=== PATIENT | female | born 1985 | race Caucasian/White ===

== ENCOUNTER 2023-08-11 15:15 | Emergency (ER) | payer SELFPAY ==
[2023-08-11 15:19] VITALS: BP 126/67; PULSE 68; RESP 16; TEMP 36.4; O2SAT 100; BMI 21.1
--- NOTE | 2023-08-11 15:44 | ED.FALL ---
HPI - Fall <Jacinta Ng PA-C - Last Filed: 08/11/23 18:39> General Chief Complaint: Fall Stated Complaint: fell/back injury Time Seen by Provider: 08/11/23 15:27 Source: patient Mode of arrival: Wheelchair History of Present Illness HPI Narrative: 38-year-old female here in ED for a back/rib injury that occurred about 2 hours [employer]. She was standing on a retaining wall and stepped onto a stump to get down in the stump ruled out from under her and she fell backwards striking her mid left back on a large plantar part. She felt pain immediately in the area. States that she took 400 mg ibuprofen before coming here. She states the pain is much worse when trying to take a deep breath. She denies any radiating symptoms to her arms or legs. She has not urinated since this happened so unsure if any hematuria or urinary problems. Related Data Previous Rx's Medication Instructions Recorded cyclobenzaprine 5 mg tablet 5 mg PO TID #20 tabs 08/11/23 Allergies Allergy/AdvReac Type Severity Reaction Status Date / Time No Known Drug Allergies Allergy Verified 08/11/23 15:27 Review of Systems <Jacinta Ng PA-C - Last Filed: 08/11/23 18:39> Review of Systems ROS Unobtainable: All systems reviewed & are unremarkable except as noted in HPI and below Patient History <Jacinat Ng PA-C - Last Filed: 08/11/23 18:39> Social History Smoking Status: Never smoker Smoking Status: Never smoker Substance Use Type: does not use Exam <Jacinta Ng PA-C - Last Filed: 08/11/23 18:39> Narrative Exam Narrative: GENERAL: [38] year old patient appears stated age. Well-developed patient, in mild distress. HEAD: Atraumatic. Normocephalic. EYES: Pupils equal round and reactive. Extraocular motions intact. No scleral icterus. No injection or drainage. ENT: Nose without bleeding, purulent drainage. Throat without erythema, tonsillar hypertrophy or exudate. Airway patent. NECK: Trachea midline. Non tender CARDIOVASCULAR: Regular rate and rhythm without murmurs, gallops, or rubs. RESPIRATORY: Clear to auscultation. Breath sounds equal bilaterally. No wheezes, rales, or rhonchi. GASTROINTESTINAL: Abdomen soft, non-tender, nondistended. EXTREMITIES: No edema or joint tenderness. BACK: small area of ecchymosis and mild swelling to the left of the thoracic spine around T9-T10. Pinpoint tenderness to this area along the ribs. No spinal deformity, tenderness, step-offs. NEURO: AOx3. SKIN: No rash or erythema of visible areas Initial Vital Signs Initial Vital Signs: Vital Signs Temperature 97.5 F L 08/11/23 15:19 Pulse Rate 68 08/11/23 15:19 Respiratory Rate 16 08/11/23 15:19 Blood Pressure 126/67 08/11/23 15:19 Pulse Oximetry 100 08/11/23 15:19 Oxygen Delivery Method Room Air 08/11/23 15:19 <Joel Covarurbias DO - Last Filed: 08/13/23 07:03> Initial Vital Signs Initial Vital Signs: Vital Signs Temperature 97.5 F L 08/11/23 15:19 Pulse Rate 68 08/11/23 15:19 Respiratory Rate 16 08/11/23 15:19 Blood Pressure 126/67 08/11/23 15:19 Pulse Oximetry 100 08/11/23 15:19 Oxygen Delivery Method Room Air 08/11/23 15:19 Course <Jacinta Ng PA-C - Last Filed: 08/11/23 18:39> Orders Ordered: Discontinued Medications Acetaminophen (Acetaminophen 325 Mg Tablet) 975 mg PO NOW ONE Stop: 08/11/23 15:46 Last Admin: 08/11/23 15:52 Dose: 975 mg Documented By: Cyclobenzaprine HCl (Cyclobenzaprine 10 Mg Tablet) 5 mg PO NOW ONE Stop: 08/11/23 15:46 Last Admin: 08/11/23 15:53 Dose: 5 mg Documented By: Vital Signs Vital signs: Vital Signs - 8 hr 08/11/23 15:19 Temperature 97.5 F L Pulse Rate 68 Respiratory Rate 16 Blood Pressure 126/67 Pulse Oximetry 100 Oxygen Delivery Method Room Air <Joel Covarrubias DO - Last Filed: 08/13/23 07:03> Orders Ordered: Discontinued Medications Acetaminophen (Acetaminophen 325 Mg Tablet) 975 mg PO NOW ONE Stop: 08/11/23 15:46 Last Admin: 08/11/23 15:52 Dose: 975 mg Documented By: ST Cyclobenzaprine HCl (Cyclobenzaprine 10 Mg Tablet) 5 mg PO NOW ONE Stop: 08/11/23 15:46 Last Admin: 08/11/23 15:53 Dose: 5 mg Documented By: Vital Signs Vital signs: Vital Signs - 8 hr 08/11/23 15:19 Temperature 97.5 F L Pulse Rate 68 Respiratory Rate 16 Blood Pressure 126/67 Pulse Oximetry 100 Oxygen Delivery Method Room Air MDM - Fall <Jacinta Ng PA-C - Last Filed: 08/11/23 18:39> Imaging Data T-Spine XRay: Radiologist's Impression: [address] [address] XRay Report Signed Patient: Zhane Nelson MR#: [id number] : 1985 Acct:[id number] Age/Sex: 38 / F Date of Service: 08/11/23 Loc: ED Accession Number: [id number] ?? Procedure: XR thoracic spine 3V Ordering Provider: Jacinta Ng P.A-C PROCEDURE:? XR THORACIC SPINE 3V ? INDICATIONS:? back injury ? TECHNIQUE:? 3 views of the thoracic spine were acquired.? ? COMPARISON:? None. ? FINDINGS:? ? Bones:? No fractures or dislocations.? No suspicious bony lesions.? 12 pairs of ribs are noted, and appear intact where visualized.? Mild multilevel degenerative endplate changes with marginal spurring.? Mild levocurvature, may be positional. ? Soft tissues:? No paravertebral stripe thickening.? ? ? IMPRESSION:? No vertebral body compression deformities. ? ? Dictated by: Patrick Forte M.D. on 08/11/2023 at 16:54 ? ? Approved by: Patrick Forte M.D. on 08/11/2023 at 16:55 ? L Rib Xray : Radiologist's Impression: [address] [address] XRay Report Signed Patient: Zhane Nelson MR#: [id number] : 1985 Acct:[id number] Age/Sex: 38 / F Date of Service: 08/11/23 Loc: ED Accession Number: [id number] ?? Procedure: XR ribs LT min 3V w CXR1V Ordering Provider: Jacinta Ng P.A-C PROCEDURE:? XR RIBS LT MIN 3V W CXR1V ? INDICATIONS:? back/rib injury ? TECHNIQUE:? 2 views of the left ribs were acquired, along with a single view chest.? ? COMPARISON:? None. ? FINDINGS:? ? Surgical changes and devices:? None.? ? Bones and chest wall:? Rib fracture versus overlap of structures in the left posterior 10th rib and possibly the left posterior 9th rib.? This is seen only on a single view.? No suspicious bony lesions.? Overlying soft tissues appear unremarkable.? ? Lungs and pleura:? No pleural effusions or pneumothorax.? Lungs appear clear.? ? Mediastinum:? Mediastinal contours appear normal.? Heart size is normal.? ? IMPRESSION:? Possible fracture versus overlap of structures of the left posterior 10th rib and possibly the left posterior 9th rib as well, seen only on a single view.? Recommend correlation with point tenderness. No pneumothorax is seen.? ? Dictated by: Patrick Forte M.D. on 08/11/2023 at 16:55 ? ? Approved by: Patrick Forte M.D. on 08/11/2023 at 16:58 ? MDM Narrative Medical decision making narrative: 38-year-old female here for mid back and rib pain following an injury that occurred today. She fell when she stepped from a retaining wall to a stump which rolled over causing her to fall backwards and strike her back on a plant pot. She is having pain in the left mid back adjacent to her T-spine around T9-T10. on exam she has pinpoint tenderness to the posterior ribs and has a small area of ecchymosis and swelling in this area. She does not have any spinal deformity, step-offs, or tenderness in her T-spine x-ray is unremarkable. She sustained a mild abrasion to her left arm and a small abrasion to her leg but neither of these need any additional treatment or care at this time. This was a relatively low velocity injury and I do not have any concern of internal organ involvement and do not think this warrants CT or additional evaluation at this time. [] Multiple etiologies for patient's symptoms considered including, but not limited to: Rib fracture, vertebrae fracture, contusion, kidney injury, lung injury Prior Charts reviewed: none Labs reviewed and interpreted by myself: none Imaging reviewed: T-spine and rib x-ray Consultations: none Patient's symptoms improved over duration of stay with above-stated therapies. Findings and discharge diagnosis discussed with patient/family followed by verbalization of understanding Return precautions discussed with patient/family whom verbalize understanding of diagnosis and plan Discharge Plan Departure Patient Disposition: Home Clinical Impression: Fracture of rib Qualifiers: Encounter type: initial encounter Rib fracture type: multiple ribs Fracture type: closed Laterality: left Qualified Code(s): S22.42XA - Multiple fractures of ribs, left side, initial encounter for closed fracture Instructions: DI for Rib Fracture Activity Restrictions/Additional Instructions: you were seen in the ED today for an injury that occurred to your back and posterior ribcage. X-rays were obtained and showed a possible rib fracture of your 9th and 10th ribs in the back portion. Please use incentive spirometry device at home as instructed. Please use prescription pain medication as instructed and use lidocaine patches for pain as needed. Prescriptions: New cyclobenzaprine 5 mg tablet 5 mg PO TID Qty: 20 0RF Stand Alone Forms: Patient Portal/API, Work Release Note <Joel Covarrubias, DO - Last Filed: 08/13/23 07:03> Cosign ED Attending Cosignature Attestation: Dr Covarrubias Co-Sign Statement: I was available for consultation during this patient's emergency department visit. This chart is signed by myself for administrative purposes only. I did not have direct contact with this patient during this visit. They were seen independently by the APC.
--- NOTE | 2023-08-11 15:46 | DI.RAD.S_ITS ---
PROCEDURE: XR RIBS LT MIN 3V W CXR1V INDICATIONS: back/rib injury TECHNIQUE: 2 views of the left ribs were acquired, along with a single view chest. COMPARISON: None. FINDINGS: Surgical changes and devices: None. Bones and chest wall: Rib fracture versus overlap of structures in the left posterior 10th rib and possibly the left posterior 9th rib. This is seen only on a single view. No suspicious bony lesions. Overlying soft tissues appear unremarkable. Lungs and pleura: No pleural effusions or pneumothorax. Lungs appear clear. Mediastinum: Mediastinal contours appear normal. Heart size is normal. IMPRESSION: Possible fracture versus overlap of structures of the left posterior 10th rib and possibly the left posterior 9th rib as well, seen only on a single view. Recommend correlation with point tenderness. No pneumothorax is seen. Dictated by: Patrick Forte M.D. on 08/11/2023 at 16:55 Approved by: Patrick Forte M.D. on 08/11/2023 at 16:58
--- NOTE | 2023-08-11 15:46 | DI.RAD.S_ITS ---
PROCEDURE: XR THORACIC SPINE 3V INDICATIONS: back injury TECHNIQUE: 3 views of the thoracic spine were acquired. COMPARISON: None. FINDINGS: Bones: No fractures or dislocations. No suspicious bony lesions. 12 pairs of ribs are noted, and appear intact where visualized. Mild multilevel degenerative endplate changes with marginal spurring. Mild levocurvature, may be positional. Soft tissues: No paravertebral stripe thickening. IMPRESSION: No vertebral body compression deformities. Dictated by: Patrick Forte M.D. on 08/11/2023 at 16:54 Approved by: Patrick Forte M.D. on 08/11/2023 at 16:55
[2023-08-11] MEDS: ACETAMINOPHEN 325 MG TABLET 975 MG PO (15:52)
[2023-08-11] MEDS: CYCLOBENZAPRINE 10 MG TABLET 5 MG PO (15:53)
[2023-08-11 17:53] VITALS: BP 107/59; PULSE 74; RESP 16; O2SAT 100
== END 2023-08-11 17:54 | disposition home or self-care (01) ==
PROVIDERS: Emergency Provider Physician Assistant
DX: S22.42XA Multiple fractures of ribs, left side, initial encounter for closed fracture (principal); W18.30XA Fall on same level, unspecified, initial encounter
CPT/HCPCS: 71101; 72072; 99283

== ENCOUNTER → 2024-10-20 10:21 | Outpatient (CLI) | payer BC, SELFPAY ==
[2024-10-20 12:03] LABS: Alanine Aminotransferase 20 IU/L (<35); Albumin 4.9 g/dL (3.5-5.0); Albumin Globulin Ratio 1.8 (1.0-2.8); Alkaline Phosphatase 49 U/L (38-126); Aspartate Aminotransferase 23 IU/L (14-36); BUN Creatinine Ratio 23.3 (6-22); Bilirubin Total 0.6 mg/dL (0.2-1.3); Blood Urea Nitrogen 14 mg/dL (7-17); Calcium 9.8 mg/dL (8.4-10.2); Carbon Dioxide 24 mmol/L (22-32); Chloride 105 mmol/L (98-107); Cholesterol 193 mg/dL (140-199); Estimated Glomerular Filt Rate > 60 mL/min (>60); Globulin 2.7 g/dL (1.7-4.1); Glucose 99 mg/dL (70-100); HDL Cholesterol 72 mg/dL (40-60); HEMOLYSIS < 15 (0-50); LDL Cholesterol Calculated 94 mg/dL (<100); Potassium 4.6 mmol/L (3.4-5.1); Sodium 138 mmol/L (137-145); Total Protein 7.6 g/dL (6.3-8.2); Triglycerides 133 mg/dL (35-150)
[2024-10-20 12:28] LABS: TSH w/ Reflex to FT4 3.07 uIU/mL (0.47-4.68)
== END ==
PROVIDERS: PCP Family Medicine; Referring Provider Family Medicine; Visit Provider Family Medicine
DX: Z13.220 Encounter for screening for lipoid disorders (principal); R63.5 Abnormal weight gain; R10.11 Right upper quadrant pain
CPT/HCPCS: 36415; 80053; 80061; 84443

== ENCOUNTER → 2024-11-03 07:13 | Outpatient (CLI) | payer BC, SELFPAY ==
--- NOTE | 2024-11-03 07:14 | DI.US.S_ITS ---
PROCEDURE: US ABDOMEN LIMITED INDICATIONS: RUQ and midline epigastric pain TECHNIQUE: Real-time focused scanning was performed of the abdomen, with image documentation. COMPARISON: None. FINDINGS: Liver measures 19 cm. Gallbladder is absent. CBD measures 5 mm, within normal limits. Visualized pancreas unremarkable. IMPRESSION: No acute right upper quadrant abnormality. The gallbladder is absent. Dictated by: Aleksandar Qureshi M.D. on 11/03/2024 at 9:13 Approved by: Aleksandar Qureshi M.D. on 11/03/2024 at 9:14
== END ==
PROVIDERS: PCP Family Medicine; Referring Provider Family Medicine; Visit Provider Family Medicine
DX: R10.11 Right upper quadrant pain (principal); Z90.49 Acquired absence of other specified parts of digestive tract
CPT/HCPCS: 76705

== ENCOUNTER → 2025-05-17 11:32 | Outpatient (CLI) | payer BC, SELFPAY ==
[2025-05-17 13:03] LABS: Add Manual Diff / Slide Review NO; Basophils Absolute Auto 0 /uL (0-100); Basophils Percent Auto 0.7 % (0-2); Eosinophils Absolute Auto 100 /uL (0-450); Eosinophils Percent Auto 2.5 % (2-4); Hematocrit 39.4 % (36-46); Hemoglobin 13.4 g/dL (12.0-16.0); Lymphocytes Absolute Auto 1500 /uL (1100-4500); Lymphocytes Percent Auto 37.5 % (25-40); Mean Corpuscular Hemoglobin 30.9 PG (26-34); Mean Corpuscular Volume 90.7 fL (80-100); Monocytes Absolute Auto 300 /uL (0-900); Monocytes Percent Auto 6.9 % (3-14); Neutrophils Absolute Auto 2200 /uL (1500-7000); Neutrophils Percent Auto 52.4 % (50-75); Platelet Count 203 X10^3/uL (150-400); Red Blood Cell Count 4.35 X10^6/uL (4.0-5.2); Red Cell Distribution Width 12.5 % (11.6-14.8); White Blood Cell Count 4.1 X10^3/uL (4.5-11.0)
[2025-05-17 13:20] LABS: HEMOLYSIS < 15 (0-50); Iron 106 ug/dL (37-170)
[2025-05-17 13:36] LABS: Percent Iron Saturation 33 % (15-50); Total Iron Binding Capacity 319 ug/dL (265-497); Transferrin 268 mg/dL (206-381)
[2025-05-17 13:58] LABS: Ferritin 34 ng/mL (6-137)
== END ==
LOC: LAB 11:33
PROVIDERS: PCP Family Medicine; Referring Provider Family Medicine; Visit Provider Family Medicine
DX: R53.83 Other fatigue (principal)
CPT/HCPCS: 36415; 82728; 83540; 83550; 85025